=== PATIENT | female | born 1985 | race Caucasian/White ===

== ENCOUNTER 2017-02-18 20:36 | Emergency (ER) | payer MEDICAID, OTHER ==
[~2017-02-18] VITALS: Ht 154.9 cm; Wt 97.5 kg
[2017-02-18 20:47] VITALS: BP 131/99
== END 2017-02-18 23:40 | disposition home or self-care (01) ==
LOC: ER 20:40
DX: S50.362A Insect bite (nonvenomous) of left elbow, initial encounter (principal); T78.40XA Allergy, unspecified, initial encounter; W57.XXXA Bitten or stung by nonvenomous insect and other nonvenomous arthropods, initial encounter; Y93.89 Activity, other specified; Y99.8 Other external cause status; Y92.89 Other specified places as the place of occurrence of the external cause

== ENCOUNTER 2017-02-24 17:26 | Emergency (ER) | payer MEDICAID ==
[~2017-02-24] VITALS: Ht 154.9 cm; Wt 95.3 kg
[2017-02-24] MEDS ORDERED: IBUPROFEN 600 MG TAB PO ONE ×2 (17:43→18:00)
[2017-02-24] MEDS ORDERED: ONDANSETRON ODT 4 MG TAB PO ONE ×2 (17:43→18:00)
[2017-02-24 18:39] VITALS: BP 144/90
== END 2017-02-24 20:24 | disposition home or self-care (01) ==
LOC: ER 17:29
DX: S92.901A Unspecified fracture of right foot, initial encounter for closed fracture (principal); W22.8XXA Striking against or struck by other objects, initial encounter; Y93.89 Activity, other specified; Y92.89 Other specified places as the place of occurrence of the external cause; Y99.8 Other external cause status
CPT/HCPCS: 73630; 99284; L3260; Q0162

== ENCOUNTER 2017-03-11 18:36 | Emergency (ER) | payer MEDICAID ==
[~2017-03-11] VITALS: Ht 154.9 cm; Wt 90.7 kg
[2017-03-11 19:43] LABS: Basophils # (auto) 0 uL; Basophils % (auto) 0.2 % (0.0-2.0); CONDITION Y; Eosinophils # (auto) 0.1 uL; Eosinophils % (auto) 1.2 % (0.0-7.0); Hematocrit 49.7 % (36.0-46.0); Hemoglobin 16.9 g/dL (12.2-16.2); Lymphocytes # (auto) 1.7 uL; Lymphocytes % (auto) 23.8 % (10.0-50.0); Mean Corpuscular Hemoglobin 31.2 pg (28.0-32.0); Mean Corpuscular Volume 91.8 fL (80.0-100.0); Mean Platelet Volume 8.8 fL (7.4-10.4); Monocytes # (auto) 0.5 uL; Monocytes % (auto) 6.6 % (0.0-12.0); Neutrophils % (auto) 68.2 % (37.0-80.0); Platelet Count (auto) 312 10^3/uL (140-450); Red Cell Distribution Width 12.9 % (11.6-16.0); White Blood Cell 7.3 10^3/uL (4.4-10.8)
[2017-03-11 19:58] LABS: Urine Bilirubin Negative (Negative); Urine Blood Negative /uL (Negative); Urine Color Colorless (Yellow); Urine Glucose Normal (Normal); Urine Ketone Negative (Negative); Urine Nitrite Negative (Negative); Urine RBC 1 /hpf (0 - 4); Urine Squamous Epithelial Cell FEW /hpf (<5); Urine Urobilinogen Normal (Negative)
[2017-03-11 20:00] LABS: Albumin 4.3 g/dL (3.4-5.0); Anion Gap 9 (5-15); Aspartate Aminotransferase 21 U/L (15-37); BUN/Creatinine Ratio 14.6; Blood Urea Nitrogen 12 mg/dL (7-18); Calcium 9.3 mg/dL (8.5-10.1); Carbon Dioxide 24 mmol/L (21-32); Chloride 109 mmol/L (98-107); GFR African American 103 mL/min; GFR Non-African American 85 mL/min; Glucose 89 mg/dL (74-106); Magnesium 2.9 mg/dL (1.6-2.6); Potassium 4.3 mmol/L (3.5-5.1); Sodium 142 mmol/L (136-145)
[2017-03-11 20:06] LABS: Alkaline Phosphatase 76 U/L (45-117); Bilirubin, Total 0.6 mg/dL (0.2-1.0); Total Protein 8.6 g/dL (6.4-8.2)
[2017-03-12 00:06] VITALS: BP 109/61
== END 2017-03-12 01:30 | disposition home or self-care (01) ==
LOC: ER 18:36
DX: F41.9 Anxiety disorder, unspecified (principal); F43.10 Post-traumatic stress disorder, unspecified; F31.9 Bipolar disorder, unspecified; F17.210 Nicotine dependence, cigarettes, uncomplicated; Z88.6 Allergy status to analgesic agent; Z88.1 Allergy status to other antibiotic agents
CPT/HCPCS: 36415; 71010; 80053; 81001; 82962; 83735; 84484; 85025; 93005

== ENCOUNTER 2017-03-31 09:01 | Emergency (ER) | payer MEDICAID ==
[~2017-03-31] VITALS: Ht 154.9 cm; Wt 95.3 kg
[2017-03-31] MEDS ORDERED: KETOROLAC TROMETH 60MG/2ML VIAL IM ONE (11:00)
[2017-03-31 13:15] VITALS: BP 118/60
== END 2017-03-31 13:31 | disposition home or self-care (01) ==
LOC: ER 09:01
DX: N39.0 Urinary tract infection, site not specified (principal); F17.210 Nicotine dependence, cigarettes, uncomplicated; Z90.710 Acquired absence of both cervix and uterus; Z88.6 Allergy status to analgesic agent
CPT/HCPCS: 74176; 96372; 99284; J1885

== ENCOUNTER 2017-05-22 15:36 | Emergency (ER) | payer MEDICAID ==
[~2017-05-22] VITALS: Ht 154.9 cm; Wt 90.7 kg
[2017-05-22 15:58] VITALS: BP 134/81
[2017-05-22 16:39] LABS: Basophils # (auto) 0 uL; Basophils % (auto) 0.6 % (0.0-2.0); Eosinophils # (auto) 0.1 uL; Hematocrit 46.3 % (36.0-46.0); Hemoglobin 15.8 g/dL (12.2-16.2); Lymphocytes # (auto) 1.2 uL; Mean Corpuscular Hemoglobin 31.6 pg (28.0-32.0); Mean Corpuscular Hgb Conc. 34.2 g/dL (32.0-36.0); Mean Corpuscular Volume 92.5 fL (80.0-100.0); Mean Platelet Volume 8.5 fL (6.9-10.8); Monocytes # (auto) 0.5 uL; Monocytes % (auto) 7.3 % (0.0-12.0); Neutrophils % (auto) 73.1 % (37.0-80.0); Nucleated Red Blood Cells % 0.1 %; Platelet Count (auto) 261 10^3/uL (140-450); Red Cell Distribution Width 12.8 % (11.8-14.3); White Blood Cell 6.9 10^3/uL (4.4-10.8)
[2017-05-22 16:42] LABS: BUN/Creatinine Ratio 15.4; Bilirubin, Total 0.3 mg/dL (0.2-1.0); Potassium 4.3 mmol/L (3.5-5.1); Total Protein 7.9 g/dL (6.4-8.2)
[2017-05-22 16:58] LABS: Urine Bilirubin Negative (Negative); Urine Blood TRACE /uL (Negative); Urine Color Yellow (Yellow); Urine Glucose Normal (Normal); Urine Ketone Negative (Negative); Urine Mucus FEW (None Seen); Urine Nitrite Negative (Negative); Urine RBC <1 /hpf (0 - 4); Urine Squamous Epithelial Cell MOD /hpf (<5); Urine Urobilinogen Normal (Negative); Urine pH 5.5 (5.0-8.0)
== END 2017-05-23 00:50 | disposition left against medical advice (07) ==
LOC: ER 15:40
DX: R53.1 Weakness (principal); Z53.21 Procedure and treatment not carried out due to patient leaving prior to being seen by health care provider
CPT/HCPCS: 36415; 80053; 81001; 85025

== ENCOUNTER 2017-06-25 17:19 | Emergency (ER) | payer MEDICAID ==
[~2017-06-25] VITALS: Ht 154.9 cm; Wt 98.9 kg
[2017-06-25 23:12] VITALS: BP 122/83
[2017-06-26] MEDS ORDERED: BACLOFEN 10 MG TAB PO ONE (01:00)
[2017-06-26] MEDS ORDERED: IBUPROFEN 600 MG TAB PO ONE (01:00)
== END 2017-06-26 01:28 | disposition home or self-care (01) ==
LOC: EDUNIT# 17:19 → ER 17:19
DX: S16.1XXA Strain of muscle, fascia and tendon at neck level, initial encounter (principal); S39.012A Strain of muscle, fascia and tendon of lower back, initial encounter; S00.93XA Contusion of unspecified part of head, initial encounter; S20.219A Contusion of unspecified front wall of thorax, initial encounter; S00.81XA Abrasion of other part of head, initial encounter; F17.210 Nicotine dependence, cigarettes, uncomplicated; V49.19XA Passenger injured in collision with other motor vehicles in nontraffic accident, initial encounter; Y93.89 Activity, other specified; Y92.410 Unspecified street and highway as the place of occurrence of the external cause; Y99.8 Other external cause status
CPT/HCPCS: 70450; 71010; 72040; 72100

== ENCOUNTER 2017-09-19 16:32 | Emergency (ER) | payer MEDICAID ==
[~2017-09-19] VITALS: Ht 154.9 cm; Wt 99.8 kg
[2017-09-19] MEDS ORDERED: LORazepam 2MG/ML-1ML VIAL IV ONE (17:00)
[2017-09-19 17:20] LABS: Basophils # (auto) 0.1 uL; Basophils % (auto) 1.6 % (0.0-2.0); Eosinophils # (auto) 0.1 uL; Eosinophils % (auto) 2.3 % (0.0-7.0); Hematocrit 45.4 % (36.0-46.0); Hemoglobin 15.5 g/dL (12.2-16.2); Lymphocytes # (auto) 1.6 uL; Lymphocytes % (auto) 25.5 % (10.0-50.0); Mean Corpuscular Hemoglobin 31.6 pg (28.0-32.0); Mean Corpuscular Hgb Conc. 34.3 g/dL (32.0-36.0); Mean Corpuscular Volume 92.3 fL (80.0-100.0); Monocytes # (auto) 0.5 uL; Monocytes % (auto) 7.4 % (0.0-12.0); Neutrophils # (auto) 3.9 uL; Neutrophils % (auto) 63.2 % (37.0-80.0); Platelet Count (auto) 254 10^3/uL (140-450); Red Blood Cells 4.92 10^6/uL (4.0-5.20); Red Cell Distribution Width 13.1 % (11.8-14.3); White Blood Cell 6.2 10^3/uL (4.4-10.8)
[2017-09-19 17:40] LABS: Albumin 4.1 g/dL (3.4-5.0); BUN/Creatinine Ratio 16.7; Calcium 8.7 mg/dL (8.5-10.1); Potassium 3.8 mmol/L (3.5-5.1)
[2017-09-19 17:43] LABS: Bilirubin, Total 0.2 mg/dL (0.2-1.0); Total Protein 7.7 g/dL (6.4-8.2)
[2017-09-19] MEDS ORDERED: PHENYTOIN SODIUM 100 MG CAP PO ONE (18:15)
[2017-09-19] MEDS ORDERED: PHENYTOIN IV DILANTIN 300 MG in SODIUM CHL 0.9% 50 ML IV ONE (18:15)
[2017-09-19 19:25] VITALS: BP 112/72
== END 2017-09-19 19:30 | disposition home or self-care (01) ==
LOC: ER 16:35
DX: G40.909 Epilepsy, unspecified, not intractable, without status epilepticus (principal); F17.210 Nicotine dependence, cigarettes, uncomplicated; Z90.710 Acquired absence of both cervix and uterus
CPT/HCPCS: 36415; 70450; 80053; 80185; 85025; 94761; 96365; 96375; 99285; J1165; J2060

== ENCOUNTER 2018-04-01 21:16 | Emergency (ER) | payer MEDICAID ==
[~2018-04-01] VITALS: Ht 157.5 cm; Wt 90.7 kg
[2018-04-01 22:11] LABS: Urine Bacteria MANY /hpf (None Seen); Urine Blood Negative /uL (Negative); Urine Mucus FEW (None Seen); Urine Specific Gravity 1.027 (1.001-1.035); Urine WBC 4 /hpf (0 - 5)
[2018-04-01 22:21] LABS: Basophils # (auto) 0.1 uL; Basophils % (auto) 0.8 % (0.0-2.0); Eosinophils # (auto) 0.1 uL; Eosinophils % (auto) 1.3 % (0.0-7.0); Hematocrit 41.5 % (36.0-46.0); Hemoglobin 14.4 g/dL (12.2-16.2); Lymphocytes # (auto) 1.1 uL; Lymphocytes % (auto) 15.7 % (10.0-50.0); Mean Corpuscular Hgb Conc. 34.7 g/dL (32.0-36.0); Mean Corpuscular Volume 92.4 fL (80.0-100.0); Monocytes # (auto) 0.4 uL; Monocytes % (auto) 6.3 % (0.0-12.0); Neutrophils # (auto) 5.3 uL; Neutrophils % (auto) 75.9 % (37.0-80.0); Platelet Count (auto) 252 10^3/uL (140-450); Red Cell Distribution Width 12.8 % (11.8-14.3)
[2018-04-01 22:27] LABS: Alcohol, Urine < 3.0 mg/dL (0-5); Amphetamine Screen, Urine NEGATIVE (NEGATIVE); Barbiturate Scree,Urine NEGATIVE (NEGATIVE); Benzodiazephine Screen, Urine NEGATIVE (NEGATIVE); Cannabinoid Screen, Urine NEGATIVE (NEGATIVE); Cocaine Screen, Urine NEGATIVE (NEGATIVE); Opiate Scree,Urine NEGATIVE (NEGATIVE); Phencyclidine Screen, Urine NEGATIVE (NEGATIVE)
[2018-04-01 22:38] LABS: Albumin 3.6 g/dL (3.4-5.0); BUN/Creatinine Ratio 11.3; Calcium 8.3 mg/dL (8.5-10.1); Potassium 3.4 mmol/L (3.5-5.1)
[2018-04-01 22:40] LABS: Bilirubin, Total 0.4 mg/dL (0.2-1.0); Total Protein 6.9 g/dL (6.4-8.2)
[2018-04-02 03:00] VITALS: BP 94/81
== END 2018-04-02 03:42 | disposition home or self-care (01) ==
LOC: EDBD 21:16 → ER 21:23
DX: G40.909 Epilepsy, unspecified, not intractable, without status epilepticus (principal); E87.6 Hypokalemia; E83.51 Hypocalcemia; F17.210 Nicotine dependence, cigarettes, uncomplicated; F12.10 Cannabis abuse, uncomplicated; Z90.710 Acquired absence of both cervix and uterus
CPT/HCPCS: 36415; 70450; 80053; 80185; 80307; 81001; 81025; 82542; 85025

== ENCOUNTER 2018-04-08 21:28 | Inpatient (IN) | payer MEDICAID ==
[~2018-04-08] VITALS: Ht 154.9 cm; Wt 88.1 kg
[2018-04-09 00:02] LABS: Basophils # (auto) 0.1 uL; Basophils % (auto) 1.3 % (0.0-2.0); Eosinophils # (auto) 0.1 uL; Eosinophils % (auto) 1.1 % (0.0-7.0); Hematocrit 43.2 % (36.0-46.0); Hemoglobin 14.4 g/dL (12.2-16.2); Lymphocytes # (auto) 1.3 uL; Lymphocytes % (auto) 18.4 % (10.0-50.0); Mean Corpuscular Hgb Conc. 33.5 g/dL (32.0-36.0); Mean Corpuscular Volume 92.7 fL (80.0-100.0); Monocytes # (auto) 0.4 uL; Monocytes % (auto) 6.1 % (0.0-12.0); Neutrophils % (auto) 73.1 % (37.0-80.0); Nucleated Red Blood Cells % 0.1 %; Platelet Count (auto) 246 10^3/uL (140-450); Red Blood Cells 4.66 10^6/uL (4.0-5.20); Red Cell Distribution Width 12.8 % (11.8-14.3); White Blood Cell 6.8 10^3/uL (4.4-10.8)
[2018-04-09 00:12] LABS: Urine Bacteria FEW /hpf (None Seen); Urine Blood Negative /uL (Negative); Urine Mucus FEW (None Seen); Urine Specific Gravity 1.032 (1.001-1.035); Urine WBC 6 /hpf (0 - 5)
[2018-04-09 00:16] LABS: Albumin 3.5 g/dL (3.4-5.0); BUN/Creatinine Ratio 16.9; Calcium 8.5 mg/dL (8.5-10.1); Potassium 3.5 mmol/L (3.5-5.1)
[2018-04-09 00:19] LABS: Bilirubin, Total 0.3 mg/dL (0.2-1.0); Total Protein 6.9 g/dL (6.4-8.2)
[2018-04-09 03:04] LABS: INR 0.99 (0.9-1.15); Partial Thromboplastin Time 33.5 sec (23.78-33.04); Prothrombin Time 10.6 sec (9.27-12.13)
[2018-04-09] MEDS ORDERED: KETOROLAC TROMETH 30 MG/ML 1ML VIAL IV ONE (03:15)
[2018-04-09] MEDS ORDERED: TEMAZEPAM 15 MG CAP PO PRN (06:15)
[2018-04-09] MEDS ORDERED: HYDROcodone-ACET 5/325MG TAB PO PRN (06:15)
[2018-04-09] MEDS ORDERED: LORazepam 2MG/ML-1ML VIAL IV PRN (06:15)
[2018-04-09] MEDS ORDERED: ACETAMINOPHEN 325 MG TAB PO PRN (06:15)
[2018-04-09] MEDS ORDERED: SODIUM CHL 0.9% IV ONE (08:15)
[2018-04-09] MEDS ORDERED: PHENYTOIN DILANTIN IV ONE (08:15)
[2018-04-09] MEDS: LEVETIRACETAM 500 MG TAB PO SCH ×2 (09:34→21:11)
[2018-04-09] MEDS: lamoTRIgine 100 MG TAB PO SCH ×2 (09:34→21:12)
[2018-04-09] MEDS: FAMOTIDINE 20 MG TAB PO SCH ×2 (09:34→21:11)
[2018-04-09] MEDS ORDERED: LEVETIRACETAM 500 MG TAB PO SCH (10:00)
[2018-04-09] MEDS: LORazepam 0.5 MG TAB PO PRN ×2 (12:36→19:11)
[2018-04-09] MEDS ORDERED: PHENYTOIN SODIUM 100 MG CAP PO SCH (14:00)
[2018-04-09 14:38] VITALS: BP 103/51
[2018-04-09 16:52] VITALS: BP 118/78
[2018-04-09] MEDS ORDERED: QUET25TA37 PO ×2 (17:29)
[2018-04-09] MEDS ORDERED: LORA-655 PO (17:29)
[2018-04-09] MEDS ORDERED: PHE100C PO (17:29)
[2018-04-09] MEDS ORDERED: LEVE500T22 PO (17:29)
[2018-04-09] MEDS: ONDANSETRON HCL 4 MG/2 ML VIAL IV PRN (19:11)
[2018-04-09] MEDS: PHENYTOIN SODIUM 100 MG CAP PO SCH (21:11)
[2018-04-09 21:34] VITALS: BP 109/49
[2018-04-10 05:23] VITALS: BP 107/72
[2018-04-10] MEDS: PHENYTOIN SODIUM 100 MG CAP PO SCH ×3 (05:53→22:17)
[2018-04-10] MEDS: ONDANSETRON HCL 4 MG/2 ML VIAL IV PRN (08:31)
[2018-04-10] MEDS: LORazepam 0.5 MG TAB PO PRN ×2 (08:31→14:40)
[2018-04-10 08:43] VITALS: BP 114/68
[2018-04-10] MEDS: LEVETIRACETAM 500 MG TAB PO SCH ×2 (09:59→22:17)
[2018-04-10] MEDS: FAMOTIDINE 20 MG TAB PO SCH ×2 (09:59→22:16)
[2018-04-10] MEDS: lamoTRIgine 100 MG TAB PO SCH ×2 (09:59→22:16)
[2018-04-10 13:00] VITALS: BP_SYST 114; BP_SYST 99; BP_DIAS 67; BP_DIAS 68
[2018-04-10 16:55] VITALS: BP 114/74
[2018-04-10 21:43] VITALS: BP 127/82
[2018-04-11 04:46] VITALS: BP 119/66
[2018-04-11] MEDS: PHENYTOIN SODIUM 100 MG CAP PO SCH (06:22)
[2018-04-11 08:00] VITALS: BP 109/73
[2018-04-11] MEDS: FAMOTIDINE 20 MG TAB PO SCH (10:32)
[2018-04-11] MEDS: LEVETIRACETAM 500 MG TAB PO SCH (10:32)
[2018-04-11] MEDS: lamoTRIgine 100 MG TAB PO SCH (10:32)
[2018-04-11 10:39] VITALS: BP 109/73
== END 2018-04-11 11:33 | disposition home or self-care (01) | DRG 53 ==
LOC: ER 21:28 → OVERFLOW 21:29 → CENTRAL 04-09 11:07
PROVIDERS: ADMIT Nurse Practitioner; ATTEND Internal Medicine Pulmonary Disease
DX: G40.909 Epilepsy, unspecified, not intractable, without status epilepticus (principal); S09.90XA Unspecified injury of head, initial encounter; F31.9 Bipolar disorder, unspecified; F43.10 Post-traumatic stress disorder, unspecified; F41.0 Panic disorder [episodic paroxysmal anxiety]; F12.90 Cannabis use, unspecified, uncomplicated; X58.XXXA Exposure to other specified factors, initial encounter; N18.2 Chronic kidney disease, stage 2 (mild); R55 Syncope and collapse; F17.210 Nicotine dependence, cigarettes, uncomplicated; Z90.710 Acquired absence of both cervix and uterus; Y93.89 Activity, other specified; Y92.89 Other specified places as the place of occurrence of the external cause; Y99.8 Other external cause status; Z88.5 Allergy status to narcotic agent; Z88.8 Allergy status to other drugs, medicaments and biological substances
CPT/HCPCS: 36415; 70450; 71045; 72125; 80053; 80185; 81001; 82962; 84484; 85025; 85610; 85730; 93005; 95819; 96374; 96375; J1885; J2405

== ENCOUNTER 2018-04-16 19:33 | Emergency (ER) | payer MEDICAID ==
[~2018-04-16] VITALS: Ht 154.9 cm; Wt 81.6 kg
[~2018-04-16 19:33] MED LIST: LEVE500T22 PO; LORA-655 PO; PHE100C PO; QUET25TA37 PO
[2018-04-16 20:17] LABS: Urine Bacteria FEW /hpf (None Seen); Urine Blood Negative /uL (Negative); Urine Mucus FEW (None Seen); Urine Specific Gravity 1.033 (1.001-1.035); Urine WBC 3 /hpf (0 - 5)
[2018-04-16 20:21] LABS: Basophils # (auto) 0 uL; Basophils % (auto) 0.6 % (0.0-2.0); Eosinophils # (auto) 0.1 uL; Eosinophils % (auto) 0.9 % (0.0-7.0); Hematocrit 41.3 % (36.0-46.0); Hemoglobin 14.3 g/dL (12.2-16.2); Lymphocytes # (auto) 1.5 uL; Lymphocytes % (auto) 21.8 % (10.0-50.0); Mean Corpuscular Hemoglobin 32.1 pg (28.0-32.0); Mean Corpuscular Hgb Conc. 34.6 g/dL (32.0-36.0); Mean Corpuscular Volume 92.7 fL (80.0-100.0); Monocytes # (auto) 0.5 uL; Monocytes % (auto) 7.4 % (0.0-12.0); Neutrophils # (auto) 4.7 uL; Neutrophils % (auto) 69.3 % (37.0-80.0); Nucleated Red Blood Cells % 0.2 %; Platelet Count (auto) 247 10^3/uL (140-450); Red Blood Cells 4.46 10^6/uL (4.0-5.20); Red Cell Distribution Width 12.9 % (11.8-14.3); White Blood Cell 6.8 10^3/uL (4.4-10.8)
[2018-04-16 20:39] LABS: BUN/Creatinine Ratio 13.9; Bilirubin, Total 0.3 mg/dL (0.2-1.0); Calcium 8.7 mg/dL (8.5-10.1); Potassium 3.7 mmol/L (3.5-5.1); Total Protein 7.5 g/dL (6.4-8.2)
[2018-04-17] MEDS ORDERED: PHENAZOPYRIDINE HCL 100 MG TAB PO ONE (01:30)
[2018-04-17 02:25] VITALS: BP 111/73
== END 2018-04-17 02:34 | disposition home or self-care (01) ==
LOC: ER 19:33
DX: N39.0 Urinary tract infection, site not specified (principal); F17.210 Nicotine dependence, cigarettes, uncomplicated; F12.10 Cannabis abuse, uncomplicated; Z88.6 Allergy status to analgesic agent; Z90.710 Acquired absence of both cervix and uterus
CPT/HCPCS: 36415; 80053; 81001; 85025

== ENCOUNTER 2018-04-20 18:21 | Emergency (ER) | payer MEDICAID ==
[~2018-04-20] VITALS: Ht 154.9 cm; Wt 90.3 kg
[2018-04-20 18:27] VITALS: BP 112/91
[2018-04-20 18:48] LABS: Urine Bacteria FEW /hpf (None Seen); Urine Blood TRACE /uL (Negative); Urine Mucus FEW (None Seen); Urine Specific Gravity 1.032 (1.001-1.035); Urine WBC 19 /hpf (0 - 5)
[2018-04-20 18:56] LABS: Alcohol, Urine < 3.0 mg/dL (0-5); Amphetamine Screen, Urine NEGATIVE (NEGATIVE); Barbiturate Scree,Urine NEGATIVE (NEGATIVE); Benzodiazephine Screen, Urine NEGATIVE (NEGATIVE); Cannabinoid Screen, Urine POSITIVE (NEGATIVE); Cocaine Screen, Urine NEGATIVE (NEGATIVE); Opiate Scree,Urine NEGATIVE (NEGATIVE); Phencyclidine Screen, Urine NEGATIVE (NEGATIVE)
[2018-04-20 19:23] LABS: Basophils # (auto) 0 uL; Basophils % (auto) 0.6 % (0.0-2.0); Eosinophils # (auto) 0 uL; Eosinophils % (auto) 0.6 % (0.0-7.0); Hematocrit 45.1 % (36.0-46.0); Hemoglobin 15.5 g/dL (12.2-16.2); Lymphocytes # (auto) 1.4 uL; Lymphocytes % (auto) 18.6 % (10.0-50.0); Mean Corpuscular Hemoglobin 31.8 pg (28.0-32.0); Mean Corpuscular Hgb Conc. 34.3 g/dL (32.0-36.0); Mean Corpuscular Volume 92.7 fL (80.0-100.0); Monocytes # (auto) 0.5 uL; Neutrophils # (auto) 5.5 uL; Neutrophils % (auto) 73.2 % (37.0-80.0); Nucleated Red Blood Cells % 0.1 %; Platelet Count (auto) 270 10^3/uL (140-450); Red Blood Cells 4.86 10^6/uL (4.0-5.20); Red Cell Distribution Width 12.8 % (11.8-14.3); White Blood Cell 7.5 10^3/uL (4.4-10.8)
[2018-04-20 19:47] LABS: Albumin 4.1 g/dL (3.4-5.0); BUN/Creatinine Ratio 8.3; Bilirubin, Total 0.7 mg/dL (0.2-1.0); Calcium 8.9 mg/dL (8.5-10.1); Potassium 3.3 mmol/L (3.5-5.1)
== END 2018-04-20 23:52 | disposition left against medical advice (07) ==
LOC: ER 18:33
DX: R56.9 Unspecified convulsions (principal); Z53.21 Procedure and treatment not carried out due to patient leaving prior to being seen by health care provider
CPT/HCPCS: 36415; 80053; 80307; 81001; 81025; 85025

== ENCOUNTER 2020-01-12 04:17 | Emergency (ER) | payer MEDICAID ==
[~2020-01-12] VITALS: Ht 157.5 cm; Wt 104.3 kg
[2020-01-12 06:26] LABS: Cannabinoid Screen, Urine NEGATIVE (NEGATIVE)
[2020-01-12 06:29] LABS: Alcohol, Urine < 3.0 mg/dL (0-10); Amphetamine Screen, Urine NEGATIVE (NEGATIVE); Barbiturate Scree,Urine NEGATIVE (NEGATIVE); Benzodiazephine Screen, Urine NEGATIVE (NEGATIVE); Cocaine Screen, Urine NEGATIVE (NEGATIVE); Opiate Scree,Urine NEGATIVE (NEGATIVE); Phencyclidine Screen, Urine NEGATIVE (NEGATIVE); Urine Bacteria FEW /hpf (None Seen); Urine Blood TRACE /uL (Negative); Urine Mucus FEW (None Seen); Urine Specific Gravity 1.035 (1.001-1.035); Urine WBC 1 /hpf (0 - 5)
[2020-01-12] MEDS ORDERED: SODIUM CHLORIDE 0.9% 1,000 ML IV ONE (07:02)
[2020-01-12 07:17] LABS: Basophils # (auto) 0 10 ^3/uL (0-0.2); Basophils % (auto) 0.4 % (0.0-2.0); Eosinophils # (auto) 0 10 ^3/uL (0-0.8); Eosinophils % (auto) 0.3 % (0.0-7.0); Hematocrit 44.7 % (36.0-46.0); Lymphocytes # (auto) 0.9 10 ^3/uL (0.4-5.4); Lymphocytes % (auto) 14.8 % (10.0-50.0); Mean Corpuscular Hemoglobin 30.3 pg (28.0-32.0); Mean Corpuscular Hgb Conc. 33.5 g/dL (32.0-36.0); Mean Corpuscular Volume 90.4 fL (80.0-100.0); Monocytes # (auto) 0.4 10 ^3/uL (0-1.3); Monocytes % (auto) 6.1 % (0.0-12.0); Neutrophils # (auto) 4.8 10 ^3/uL (1.6-8.6); Neutrophils % (auto) 78.4 % (37.0-80.0); Nucleated Red Blood Cells % 0.1 %; Platelet Count (auto) 229 10^3/uL (140-450); Red Blood Cells 4.94 10^6/uL (4.0-5.20); Red Cell Distribution Width 12.7 % (11.8-14.3); White Blood Cell 6.2 10^3/uL (4.4-10.8)
[2020-01-12 07:25] LABS: INR 1.15 (0.9-1.15); Partial Thromboplastin Time 27.8 sec (23.64-32.05)
[2020-01-12 07:32] LABS: Albumin 3.9 g/dL (3.4-5.0); Anion Gap 9 (5-15); Blood Urea Nitrogen 13 mg/dL (7-18); Calcium 8.9 mg/dL (8.5-10.1); Carbon Dioxide 23 mmol/L (21-32); Chloride 108 mmol/L (98-107); Glucose 121 mg/dL (74-106); Potassium 3.6 mmol/L (3.5-5.1); Sodium 140 mmol/L (136-145)
[2020-01-12 07:38] LABS: Alanine Aminotransferase 98 U/L (13-56); Alkaline Phosphatase 59 U/L (45-117); Aspartate Aminotransferase 26 U/L (15-37); BUN/Creatinine Ratio 18.8; Bilirubin, Total 1.2 mg/dL (0.2-1.0); GFR African American 124 mL/min; GFR Non-African American 102 mL/min; Total Protein 7.6 g/dL (6.4-8.2)
[2020-01-12 09:57] VITALS: BP 105/57
== END 2020-01-12 10:21 | disposition home or self-care (01) ==
LOC: ER 04:17
DX: G40.909 Epilepsy, unspecified, not intractable, without status epilepticus (principal); F31.9 Bipolar disorder, unspecified; R53.81 Other malaise; R53.83 Other fatigue; F17.210 Nicotine dependence, cigarettes, uncomplicated; Z90.710 Acquired absence of both cervix and uterus
CPT/HCPCS: 36415; 80053; 80307; 81001; 83605; 83735; 83880; 84443; 84484; 85025; 85610; 85730; 87040; 96360; 96361; 99283; J7030

== ENCOUNTER 2022-08-08 13:54 | Emergency (ER) | payer MEDICAID ==
[~2022-08-08] VITALS: Ht 157.5 cm; Wt 101.0 kg
[~2022-08-08 13:54] MED LIST changes: -LEVE500T22 PO; +LEVE500T32 PO
[2022-08-08 14:47] LABS: Urine Bacteria MOD /hpf (None Seen); Urine Blood Negative /uL (Negative); Urine Specific Gravity 1.016 (1.001-1.035); Urine WBC 4 /hpf (0 - 5)
[2022-08-08] MEDS ORDERED: IOHEXOL 350 MG/ML 100ML IJ ONE ×2 (15:26→18:11)
[2022-08-08 15:27] LABS: Basophils # (auto) 0 10 ^3/uL (0-0.2); Basophils % (auto) 0.6 % (0.0-2.0); Eosinophils # (auto) 0.1 10 ^3/uL (0-0.8); Eosinophils % (auto) 0.9 % (0.0-7.0); Hematocrit 46.4 % (36.0-46.0); Lymphocytes # (auto) 1.6 10 ^3/uL (0.4-5.4); Lymphocytes % (auto) 22.8 % (10.0-50.0); Mean Corpuscular Hemoglobin 31.1 pg (28.0-32.0); Mean Corpuscular Hgb Conc. 34.6 g/dL (32.0-36.0); Monocytes # (auto) 0.5 10 ^3/uL (0-1.3); Monocytes % (auto) 7.3 % (0.0-12.0); Neutrophils # (auto) 4.7 10 ^3/uL (1.6-8.6); Neutrophils % (auto) 68.4 % (37.0-80.0); Nucleated Red Blood Cells % 0.2 %; Red Blood Cells 5.15 10^6/uL (4.0-5.20); Red Cell Distribution Width 12.7 % (11.8-14.3); White Blood Cell 6.9 10^3/uL (4.4-10.8)
[2022-08-08 15:42] LABS: Albumin 4.2 g/dL (3.4-5.0); Calcium 9.4 mg/dL (8.5-10.1); Magnesium 2.5 mg/dL (1.6-2.6); Potassium 3.7 mmol/L (3.5-5.1)
[2022-08-08 15:44] LABS: BUN/Creatinine Ratio 19.4
[2022-08-08 15:47] LABS: Bilirubin, Total 0.5 mg/dL (0.2-1.0); Total Protein 7.6 g/dL (6.4-8.2)
[2022-08-08 19:54] VITALS: BP 135/76
== END 2022-08-08 19:55 | disposition home or self-care (01) ==
LOC: ER 13:54
DX: R06.00 Dyspnea, unspecified (principal); R07.89 Other chest pain; R06.02 Shortness of breath; F17.210 Nicotine dependence, cigarettes, uncomplicated; F12.10 Cannabis abuse, uncomplicated; Z90.49 Acquired absence of other specified parts of digestive tract; Z90.710 Acquired absence of both cervix and uterus; Z88.6 Allergy status to analgesic agent; Z79.899 Other long term (current) drug therapy
CPT/HCPCS: 36415; 71045; 71275; 80053; 81001; 83735; 83880; 84484; 85025; 85379; 93005; 93970; 99285; Q9967

== ENCOUNTER 2024-03-16 19:14 | Inpatient (IN) | payer MEDICAID ==
[~2024-03-16] VITALS: Ht 157.5 cm; Wt 88.6 kg
[~2024-03-16 19:14] MED LIST changes: -LEVE500T32 PO; +LEVE500T40 PO; -PHE100C PO; +PHEN1CAP38 PO
[2024-03-16 21:05] LABS: Alanine Aminotransferase 15 U/L (7-40); Albumin 4.5 g/dL (3.2-4.8); Alkaline Phosphatase 64 U/L (46-116); Anion Gap 7 (5-15); Aspartate Aminotransferase 9 U/L (13-40); BUN/Creatinine Ratio 12.4 (10.0-20.0); Bilirubin, Total 0.7 mg/dL (0.2-1.0); Blood Urea Nitrogen 12 mg/dL (9-23); Calcium 9.8 mg/dL (8.7-10.4); Carbon Dioxide 21 mmol/L (20-30); Chloride 112 mmol/L (98-107); Glucose 95 mg/dL (74-106); Potassium 3.5 mmol/L (3.5-5.1); Sodium 140 mmol/L (136-145); Total Protein 7.3 g/dL (5.7-8.2)
[2024-03-16 21:34] LABS: INR 1.06 (0.9-1.15); Partial Thromboplastin Time 26.3 SEC (24.5-34.5); Prothrombin Time 11.2 sec (9.3-11.8)
[2024-03-16 21:59] LABS: Basophils # (auto) 0 10 ^3/uL (0-0.2); Basophils % (auto) 0.5 % (0.0-2.0); Eosinophils # (auto) 0.1 10 ^3/uL (0-0.8); Eosinophils % (auto) 0.9 % (0.0-7.0); Hematocrit 46.1 % (36.0-46.0); Hemoglobin 15.6 g/dL (12.2-16.2); Lymphocytes # (auto) 1.9 10 ^3/uL (0.4-5.4); Lymphocytes % (auto) 30.7 % (10.0-50.0); Mean Corpuscular Hemoglobin 31.1 pg (28.0-32.0); Mean Corpuscular Hgb Conc. 33.9 g/dL (32.0-36.0); Mean Corpuscular Volume 91.8 fL (80.0-100.0); Monocytes # (auto) 0.4 10 ^3/uL (0-1.3); Neutrophils # (auto) 3.8 10 ^3/uL (1.6-8.6); Neutrophils % (auto) 60.9 % (37.0-80.0); Nucleated Red Blood Cells % 0.1 %; Platelet Count (auto) 238 10^3/uL (140-450); Red Blood Cells 5.02 10^6/uL (4.0-5.20); Red Cell Distribution Width 12.9 % (11.8-14.3); White Blood Cell 6.3 10^3/uL (4.4-10.8)
[2024-03-16] MEDS ORDERED: LORazepam 0.5 MG TAB PO PRN (22:45)
[2024-03-16] MEDS ORDERED: LORazepam 2MG/ML-1ML VIAL IV PRN (22:45)
[2024-03-17] MEDS ORDERED: ACETAMINOPHEN 325 MG TAB PO PRN (00:45)
[2024-03-17] MEDS ORDERED: ONDANSETRON HCL 4 MG/2 ML VIAL IV PRN (00:45)
[2024-03-17] MEDS ORDERED: TEMAZEPAM 15 MG CAP PO PRN (00:45)
[2024-03-17 02:04] VITALS: PULSE 77; RESP 21; O2SAT 98
[2024-03-17] MEDS: levETIRAcetam 1000 mg/100ml 100 ML IV ONE (02:10)
[2024-03-17] MEDS: LORazepam 2MG/ML-1ML VIAL IV ONE (02:10)
[2024-03-17 08:31] VITALS: PULSE 79; RESP 16; O2SAT 95
[2024-03-17] MEDS: levETIRAcetam 500 MG TAB PO SCH (09:10)
[2024-03-17] MEDS: TOPIRAMATE 25 MG TAB PO SCH (09:11)
[2024-03-17] MEDS: METOPROLOL SUCCINATE XL 50 MG TAB PO SCH (09:11)
[2024-03-17 10:00] VITALS: TEMP 98.3
[2024-03-17 12:00] LABS: Basophils # (auto) 0 10 ^3/uL (0-0.2); Basophils % (auto) 0.5 % (0.0-2.0); Eosinophils # (auto) 0 10 ^3/uL (0-0.8); Hematocrit 44.7 % (36.0-46.0); Hemoglobin 15.2 g/dL (12.2-16.2); Lymphocytes # (auto) 1.5 10 ^3/uL (0.4-5.4); Lymphocytes % (auto) 31.2 % (10.0-50.0); Mean Corpuscular Hemoglobin 31.2 pg (28.0-32.0); Mean Corpuscular Hgb Conc. 33.9 g/dL (32.0-36.0); Mean Corpuscular Volume 92.1 fL (80.0-100.0); Monocytes # (auto) 0.4 10 ^3/uL (0-1.3); Monocytes % (auto) 7.8 % (0.0-12.0); Neutrophils # (auto) 2.9 10 ^3/uL (1.6-8.6); Neutrophils % (auto) 59.5 % (37.0-80.0); Platelet Count (auto) 220 10^3/uL (140-450); Red Blood Cells 4.86 10^6/uL (4.0-5.20); Red Cell Distribution Width 12.8 % (11.8-14.3); White Blood Cell 4.9 10^3/uL (4.4-10.8)
[2024-03-17 12:13] VITALS: BP 94/61; PULSE 84; RESP 17; O2SAT 96
[2024-03-17 12:19] LABS: Alanine Aminotransferase 11 U/L (7-40); Albumin 4.2 g/dL (3.2-4.8); Alkaline Phosphatase 50 U/L (46-116); Anion Gap 7 (5-15); Aspartate Aminotransferase 10 U/L (13-40); BUN/Creatinine Ratio 14.1 (10.0-20.0); Blood Urea Nitrogen 11 mg/dL (9-23); Calcium 9.4 mg/dL (8.7-10.4); Carbon Dioxide 19 mmol/L (20-30); Chloride 114 mmol/L (98-107); Glucose 91 mg/dL (74-106); Potassium 3.7 mmol/L (3.5-5.1); Sodium 140 mmol/L (136-145); Total Protein 6.8 g/dL (5.7-8.2)
== END 2024-03-17 21:25 | disposition home or self-care (01) | DRG 53 ==
LOC: ER 19:14 → EDBD 19:14 → OVERFLOW 03-17 00:49
PROVIDERS: ADMIT Internal Medicine Pulmonary Disease; ATTEND Internal Medicine Pulmonary Disease
DX: R56.9 Unspecified convulsions (principal); F31.9 Bipolar disorder, unspecified; F41.9 Anxiety disorder, unspecified; I10 Essential (primary) hypertension; F43.10 Post-traumatic stress disorder, unspecified; Z79.899 Other long term (current) drug therapy; Z90.710 Acquired absence of both cervix and uterus; Z98.891 History of uterine scar from previous surgery; Z90.49 Acquired absence of other specified parts of digestive tract; Z88.8 Allergy status to other drugs, medicaments and biological substances
CPT/HCPCS: 36415; 70450; 80053; 83880; 84484; 84702; 85025; 85610; 85730; 96365; 99291; G0378

== ENCOUNTER 2024-05-12 14:01 | Inpatient (IN) | payer MEDICAID ==
[~2024-05-12] VITALS: Ht 30.5 cm; Wt 95.2 kg
[2024-05-12 15:31] VITALS: PULSE 74; RESP 15; O2SAT 97
[2024-05-12 15:31] LABS: Basophils # (auto) 0 10 ^3/uL (0-0.2); Basophils % (auto) 0.7 % (0.0-2.0); Eosinophils # (auto) 0 10 ^3/uL (0-0.8); Hematocrit 45.3 % (36.0-46.0); Hemoglobin 15.6 g/dL (12.2-16.2); Lymphocytes # (auto) 1.6 10 ^3/uL (0.4-5.4); Lymphocytes % (auto) 32.4 % (10.0-50.0); Mean Corpuscular Hemoglobin 31.3 pg (28.0-32.0); Mean Corpuscular Hgb Conc. 34.4 g/dL (32.0-36.0); Mean Corpuscular Volume 91.1 fL (80.0-100.0); Monocytes # (auto) 0.4 10 ^3/uL (0-1.3); Monocytes % (auto) 7.6 % (0.0-12.0); Neutrophils % (auto) 58.3 % (37.0-80.0); Nucleated Red Blood Cells % 0.1 %; Platelet Count (auto) 218 10^3/uL (140-450); Red Blood Cells 4.98 10^6/uL (4.0-5.20); Red Cell Distribution Width 12.7 % (11.8-14.3); White Blood Cell 5.1 10^3/uL (4.4-10.8)
[2024-05-12 15:52] LABS: Alanine Aminotransferase 24 U/L (7-40); Albumin 4.6 g/dL (3.2-4.8); Alkaline Phosphatase 50 U/L (46-116); Anion Gap 8 (5-15); Aspartate Aminotransferase 13 U/L (13-40); BUN/Creatinine Ratio 14.3 (10.0-20.0); Bilirubin, Total 0.9 mg/dL (0.2-1.0); Blood Urea Nitrogen 11 mg/dL (9-23); Carbon Dioxide 26 mmol/L (20-31); Chloride 110 mmol/L (98-107); Creatine Kinase IFCC 69 U/L (34-145); Glucose 96 mg/dL (74-106); Magnesium 2.2 mg/dL (1.6-2.6); Sodium 144 mmol/L (136-145)
[2024-05-12] MEDS: SODIUM CHLORIDE 0.9% 1,000 ML IV ONE (16:23)
[2024-05-12 20:00] VITALS: PULSE 82; RESP 25; O2SAT 96
[2024-05-12] MEDS ORDERED: LORazepam 2MG/ML-1ML VIAL IV PRN (21:15)
[2024-05-12] MEDS ORDERED: TEMAZEPAM 15 MG CAP PO PRN (21:15)
[2024-05-12 21:51] LABS: Urine Bacteria FEW /hpf (None Seen); Urine Blood Negative /uL (Negative); Urine Clarity Turbid (Clear); Urine Color Light-Orange (Yellow); Urine Mucus FEW (None Seen); Urine Protein, UAD TRACE (Negative); Urine Urobilinogen Normal (Negative); Urine WBC 6 /hpf (0 - 5); Urine pH 5.5 (5.0-9.0)
[2024-05-12 22:06] LABS: Amphetamine Screen, Urine Neg (NEGATIVE); Barbiturate Scree,Urine Neg (NEGATIVE); Benzodiazephine Screen, Urine Neg (NEGATIVE); Cocaine Screen, Urine Neg (NEGATIVE); Opiate Scree,Urine Neg (NEGATIVE)
[2024-05-12 22:07] LABS: Cannabinoid Screen, Urine Neg (NEGATIVE); Phencyclidine Screen, Urine Neg (NEGATIVE)
[2024-05-12 23:37] VITALS: BP 100/51; PULSE 69; RESP 20; TEMP 98.3; O2SAT 96
[2024-05-13 01:00] VITALS: BP 100/53; PULSE 65; RESP 17; TEMP 98.2; O2SAT 97
[2024-05-13 05:00] VITALS: BP 91/52; PULSE 77; RESP 18; TEMP 98.1; O2SAT 97
[2024-05-13 07:30] VITALS: PULSE 77; RESP 18; O2SAT 97
[2024-05-13] MEDS ORDERED: METOPROLOL SUCCINATE XL 50 MG TAB PO SCH (10:00)
[2024-05-13] MEDS: FUROSEMIDE 20 MG TAB PO SCH (10:00)
[2024-05-13] MEDS: TOPIRAMATE 100 MG TAB PO SCH (10:23)
[2024-05-13] MEDS: ACETAMINOPHEN 325 MG TAB PO PRN (10:24)
[2024-05-13] MEDS ORDERED: HYDR5CRE3 TOP (11:50)
[2024-05-13] MEDS ORDERED: GABA-1251 PO (11:50)
[2024-05-13] MEDS ORDERED: CHOL1TAB42 PO (11:50)
[2024-05-13] MEDS ORDERED: DARI50TA PO (11:50)
[2024-05-13] MEDS ORDERED: OXYC325T14 (11:50)
[2024-05-13] MEDS ORDERED: FERR325T20 PO (11:50)
[2024-05-13] MEDS ORDERED: DOCU-265 PO (11:50)
[2024-05-13] MEDS ORDERED: METO-289 PO (11:50)
[2024-05-13] MEDS ORDERED: LIDO1PAD55 TOP (11:50)
[2024-05-13] MEDS ORDERED: TOPI100T68 PO (11:50)
[2024-05-13] MEDS ORDERED: FERR325T24 PO (11:50)
[2024-05-13] MEDS ORDERED: TIRZ5INJ2 SC (11:50)
[2024-05-13] MEDS ORDERED: POTA-215 (11:50)
[2024-05-13] MEDS ORDERED: ACET-6 PO (11:50)
[2024-05-13] MEDS ORDERED: ASCO500T6 PO (11:50)
[2024-05-13] MEDS ORDERED: [UNRECOGNIZED DRUG - CODE] (11:50)
[2024-05-13] MEDS ORDERED: PANC3600 PO (11:50)
[2024-05-13] MEDS ORDERED: GLUC-245 XX (11:50)
[2024-05-13] MEDS ORDERED: MELO7.5T7 PO (11:50)
[2024-05-13] MEDS ORDERED: METH-867 PO (11:50)
[2024-05-13] MEDS ORDERED: OMEP1CAP70 PO (11:50)
[2024-05-13] MEDS ORDERED: CETI-120 PO (11:50)
[2024-05-13] MEDS ORDERED: FOLI-119 PO (11:50)
[2024-05-13] MEDS ORDERED: DICL1GEL73 TOP (11:50)
[2024-05-13] MEDS ORDERED: FURO20TA4 PO (11:50)
[2024-05-13] MEDS ORDERED: PYRI1TAB10 PO (11:50)
[2024-05-13] MEDS ORDERED: CHOL4POW PO (11:50)
[2024-05-13] MEDS ORDERED: MULT-1056 PO (11:50)
[2024-05-13 13:00] VITALS: BP 104/54; PULSE 69; RESP 18; TEMP 98.4; O2SAT 96
[2024-05-13 14:41] LABS: Basophils # (auto) 0 10 ^3/uL (0-0.2); Basophils % (auto) 0.3 % (0.0-2.0); Eosinophils # (auto) 0.1 10 ^3/uL (0-0.8); Eosinophils % (auto) 1.2 % (0.0-7.0); Hematocrit 41.2 % (36.0-46.0); Hemoglobin 14.4 g/dL (12.2-16.2); Lymphocytes # (auto) 1.4 10 ^3/uL (0.4-5.4); Lymphocytes % (auto) 25.1 % (10.0-50.0); Mean Corpuscular Hemoglobin 31.7 pg (28.0-32.0); Mean Corpuscular Volume 90.7 fL (80.0-100.0); Monocytes # (auto) 0.4 10 ^3/uL (0-1.3); Monocytes % (auto) 7.6 % (0.0-12.0); Neutrophils # (auto) 3.6 10 ^3/uL (1.6-8.6); Neutrophils % (auto) 65.8 % (37.0-80.0); Nucleated Red Blood Cells % 0.1 %; Platelet Count (auto) 204 10^3/uL (140-450); Red Blood Cells 4.55 10^6/uL (4.0-5.20); Red Cell Distribution Width 12.9 % (11.8-14.3); White Blood Cell 5.5 10^3/uL (4.4-10.8)
[2024-05-13 14:59] LABS: Chloride 110 mmol/L (98-107); Potassium 3.7 mmol/L (3.5-5.1); Sodium 142 mmol/L (136-145)
[2024-05-13 15:01] LABS: Anion Gap 5 (5-15); Calcium 9.7 mg/dL (8.7-10.4); Carbon Dioxide 27 mmol/L (20-31)
[2024-05-13 15:06] LABS: BUN/Creatinine Ratio 10.1 (10.0-20.0); Blood Urea Nitrogen 9 mg/dL (9-23); Glucose 100 mg/dL (74-106)
[2024-05-13] MEDS: GABAPENTIN 400 MG CAP PO SCH (16:04)
[2024-05-13 20:00] VITALS: PULSE 57; RESP 16; O2SAT 96
[2024-05-13 21:00] VITALS: BP 94/59; PULSE 57; RESP 16; TEMP 98.4; O2SAT 96
[2024-05-14] VITALS (8 sets, daily range): BP systolic 88–104; BP diastolic 51–71; PULSE 65–85; RESP 15–23; TEMP 97.6–98.4; O2SAT 95–97
[2024-05-14] MEDS ORDERED: LORazepam 2MG/ML-1ML VIAL IV PRN (00:15)
[2024-05-14] MEDS: TOPIRAMATE 100 MG TAB PO SCH (00:51)
[2024-05-14 07:05] LABS: Chloride 112 mmol/L (98-107); Sodium 140 mmol/L (136-145)
[2024-05-14 07:06] LABS: Anion Gap 6 (5-15); Carbon Dioxide 22 mmol/L (20-31)
[2024-05-14 07:07] LABS: Calcium 9.6 mg/dL (8.7-10.4)
[2024-05-14 07:12] LABS: BUN/Creatinine Ratio 12.3 (10.0-20.0); Blood Urea Nitrogen 10 mg/dL (9-23); Glucose 95 mg/dL (74-106)
[2024-05-14] MEDS: LORazepam 0.5 MG TAB PO PRN (08:43)
[2024-05-14 10:27] LABS: Basophils # (auto) 0 10 ^3/uL (0-0.2); Basophils % (auto) 0.5 % (0.0-2.0); Eosinophils # (auto) 0.1 10 ^3/uL (0-0.8); Eosinophils % (auto) 1.4 % (0.0-7.0); Hematocrit 42.8 % (36.0-46.0); Hemoglobin 14.8 g/dL (12.2-16.2); Lymphocytes # (auto) 1.3 10 ^3/uL (0.4-5.4); Lymphocytes % (auto) 31.9 % (10.0-50.0); Mean Corpuscular Hemoglobin 31.5 pg (28.0-32.0); Mean Corpuscular Hgb Conc. 34.6 g/dL (32.0-36.0); Mean Corpuscular Volume 91.3 fL (80.0-100.0); Monocytes # (auto) 0.4 10 ^3/uL (0-1.3); Monocytes % (auto) 8.3 % (0.0-12.0); Neutrophils # (auto) 2.4 10 ^3/uL (1.6-8.6); Neutrophils % (auto) 57.9 % (37.0-80.0); Nucleated Red Blood Cells % 0.1 %; Platelet Count (auto) 191 10^3/uL (140-450); Red Blood Cells 4.69 10^6/uL (4.0-5.20); Red Cell Distribution Width 12.9 % (11.8-14.3); White Blood Cell 4.2 10^3/uL (4.4-10.8)
[2024-05-14] MEDS: MECLIZINE HCL 25 MG TAB PO ONE (16:46)
[2024-05-15] VITALS (9 sets, daily range): BP systolic 83–100; BP diastolic 46–78; PULSE 70–94; RESP 16–20; TEMP 98–98.5; O2SAT 92–100
[2024-05-15 13:20] LABS: Basophils # (auto) 0 10 ^3/uL (0-0.2); Basophils % (auto) 0.6 % (0.0-2.0); Eosinophils # (auto) 0.1 10 ^3/uL (0-0.8); Eosinophils % (auto) 1.5 % (0.0-7.0); Hematocrit 45.7 % (36.0-46.0); Hemoglobin 15.5 g/dL (12.2-16.2); Lymphocytes # (auto) 1.6 10 ^3/uL (0.4-5.4); Lymphocytes % (auto) 29.6 % (10.0-50.0); Mean Corpuscular Hemoglobin 31.5 pg (28.0-32.0); Mean Corpuscular Volume 92.9 fL (80.0-100.0); Monocytes # (auto) 0.4 10 ^3/uL (0-1.3); Monocytes % (auto) 6.7 % (0.0-12.0); Neutrophils # (auto) 3.4 10 ^3/uL (1.6-8.6); Neutrophils % (auto) 61.6 % (37.0-80.0); Platelet Count (auto) 219 10^3/uL (140-450); Red Blood Cells 4.92 10^6/uL (4.0-5.20); Red Cell Distribution Width 13.1 % (11.8-14.3); White Blood Cell 5.6 10^3/uL (4.4-10.8)
[2024-05-15 13:25] LABS: Chloride 112 mmol/L (98-107); Potassium 3.9 mmol/L (3.5-5.1); Sodium 140 mmol/L (136-145)
[2024-05-15 13:26] LABS: Anion Gap 6 (5-15); Carbon Dioxide 22 mmol/L (20-31)
[2024-05-15 13:27] LABS: Calcium 9.7 mg/dL (8.7-10.4)
[2024-05-15 13:31] LABS: BUN/Creatinine Ratio 14.6 (10.0-20.0); Blood Urea Nitrogen 13 mg/dL (9-23); Glucose 118 mg/dL (74-106)
[2024-05-16] VITALS (14 sets, daily range): BP systolic 83–106; BP diastolic 41–72; PULSE 76–116; RESP 16–19; TEMP 97.9–99.2; O2SAT 93–97
[2024-05-16] MEDS: ONDANSETRON HCL 4 MG/2 ML VIAL IV PRN (12:49)
[2024-05-17] VITALS (8 sets, daily range): BP systolic 83–108; BP diastolic 52–63; PULSE 70–86; RESP 16–18; TEMP 97.5–99; O2SAT 93–98
[2024-05-17 07:40] LABS: Basophils # (auto) 0 10 ^3/uL (0-0.2); Basophils % (auto) 0.6 % (0.0-2.0); Eosinophils # (auto) 0.1 10 ^3/uL (0-0.8); Eosinophils % (auto) 1.3 % (0.0-7.0); Hematocrit 40.7 % (36.0-46.0); Hemoglobin 14.3 g/dL (12.2-16.2); Lymphocytes # (auto) 1.3 10 ^3/uL (0.4-5.4); Lymphocytes % (auto) 26.3 % (10.0-50.0); Mean Corpuscular Hemoglobin 31.9 pg (28.0-32.0); Mean Corpuscular Hgb Conc. 35.1 g/dL (32.0-36.0); Monocytes # (auto) 0.4 10 ^3/uL (0-1.3); Monocytes % (auto) 7.5 % (0.0-12.0); Neutrophils # (auto) 3.1 10 ^3/uL (1.6-8.6); Neutrophils % (auto) 64.3 % (37.0-80.0); Nucleated Red Blood Cells % 0.1 %; Platelet Count (auto) 178 10^3/uL (140-450); Red Blood Cells 4.48 10^6/uL (4.0-5.20); Red Cell Distribution Width 12.9 % (11.8-14.3); White Blood Cell 4.9 10^3/uL (4.4-10.8)
[2024-05-17 07:46] LABS: Anion Gap 6 (5-15); Carbon Dioxide 22 mmol/L (20-31); Chloride 112 mmol/L (98-107); Potassium 3.9 mmol/L (3.5-5.1); Sodium 140 mmol/L (136-145)
[2024-05-17 07:47] LABS: Calcium 9.2 mg/dL (8.7-10.4)
[2024-05-17 07:52] LABS: BUN/Creatinine Ratio 14.8 (10.0-20.0); Blood Urea Nitrogen 13 mg/dL (9-23); Glucose 96 mg/dL (74-106)
[2024-05-18] VITALS (7 sets, daily range): BP systolic 78–109; BP diastolic 47–75; PULSE 66–79; RESP 18–20; TEMP 98–98.5; O2SAT 93–98
[2024-05-19 01:00] VITALS: BP 91/48; PULSE 72; RESP 17; TEMP 98.6; O2SAT 94
[2024-05-19 05:00] VITALS: BP 116/68; PULSE 69; RESP 19; TEMP 97.3; O2SAT 98
[2024-05-19 08:00] VITALS: PULSE 70; RESP 18; O2SAT 98
[2024-05-19 09:00] VITALS: BP 101/67; PULSE 76; RESP 18; TEMP 98.2; O2SAT 99
[2024-05-19] MEDS ORDERED: TOPI100T29 PO (09:43)
[2024-05-19 12:32] VITALS: BP 101/67; PULSE 76; RESP 18; TEMP 36.8; O2SAT 99
== END 2024-05-19 14:15 | disposition home or self-care (01) | DRG 53 ==
LOC: ER 14:01 → EDBD 14:01 → WEST WING 21:16 → OVERFLOW 21:16 → WEST WING 23:09
PROVIDERS: ADMIT Internal Medicine Geriatric Medicine; ATTEND Internal Medicine Geriatric Medicine
DX: G40.409 Other generalized epilepsy and epileptic syndromes, not intractable, without status epilepticus (principal); E11.42 Type 2 diabetes mellitus with diabetic polyneuropathy; F17.210 Nicotine dependence, cigarettes, uncomplicated; I10 Essential (primary) hypertension; F31.9 Bipolar disorder, unspecified; F43.10 Post-traumatic stress disorder, unspecified; F41.9 Anxiety disorder, unspecified; Z90.710 Acquired absence of both cervix and uterus; Z90.49 Acquired absence of other specified parts of digestive tract; Z79.899 Other long term (current) drug therapy; Z88.5 Allergy status to narcotic agent
CPT/HCPCS: 36415; 70450; 71045; 72125; 80048; 80053; 80201; 80307; 81001; 82550; 83036; 83605; 83690; 83735; 84484; 85025; 87086; 96360; 97110; 97116; 97163; 97530; G0378; J2405